=== PATIENT | female | born 1990 | race Caucasian/White ===

== ENCOUNTER 2020-01-25 12:34 | Outpatient (CLI) | payer BC, SELFPAY ==
--- NOTE | ~2020-01-25 | US_ITS ---
EXAMINATION: US pelvic complete w TV DATE: 01/25/2020 13:31 INDICATION: Incomplete spontaneous without complication. TECHNIQUE: Multiple transabdominal and transvaginal sonographic images of the pelvis were obtained. COMPARISON: None. FINDINGS: TRANSABDOMINAL ULTRASOUND: The uterus measures 8.1 x 4.4 x 6.1 cm. There is trace free fluid in the pelvis. TRANSVAGINAL ULTRASOUND: The endometrial complex measures 1.9 cm in thickness and demonstrates internal vascular flow. The rig ht ovary measures 3.1 x 2.2 x 2.3 cm. The left ovary measures 3.1 x 1.2 x 2.6 cm. IMPRESSION: 1. Thickened endometrial complex with internal vascular flow, consistent with retained products of co nception. Reviewed, dictated and finalized at location A. IMPRESSION: 1. Thickened endometrial complex with internal vascular flow, consistent with r etained products of conception.
== END 2020-01-25 12:35 | disposition home or self-care (01) ==
PROVIDERS: Visit Provider Obstetrics & Gynecology
DX: O03.4 Incomplete spontaneous abortion without complication (principal); R93.89 Abnormal findings on diagnostic imaging of other specified body structures
CPT/HCPCS: 76830; 76856

== ENCOUNTER 2023-07-11 17:36 | Inpatient (IN) | payer BC, SELFPAY ==
[2023-07-11] VITALS (25 sets, daily range): BP systolic 117–155; BP diastolic 53–86; PULSE 69–99; RESP 16; TEMP 36.6–36.8; O2SAT 98–100; BMI 37.3
--- NOTE | 2023-07-11 18:17 | LDADM ---
This patient, Ruth Francis, was admitted to Labor/Delivery/Recovery 107 on 07/11/23 at 17:36. Plans for labor, pain management and were discussed with patient. Patient/family oriented to hospital policies and general routines including ID bracelet, bed and alarms, visiting hours, pain management, procedures, bathroom and other care routines, personal items, smoking policy, room service/diet and guest tray routines, infant security routines, and visiting hours. Patient/Family are encouraged to report perceived risks to care and to ask questions if they do not understand what they are told or what they should do. See OBIX for further documentation.
[2023-07-11 18:45] LABS: Basophils Percent Auto 0.3 % (0.2-1.2); Eosinophils Percent Auto 0.5 % (0-4.4); Hematocrit 35.7 % (37.0-47.0); Hemoglobin 12.4 g/dL (12.0-15.0); Immature Granulocyte Absolute 0.03 K/mm3 (0.00-0.031); Immature Granulocyte Percent A 0.4 % (0-0.5); Lymphocytes Absolute Auto 1.35 K/mm3 (0.9-3.2); Lymphocytes Percent Auto 17.1 % (18.3-44.2); Mean Corpuscular HGB Conc 34.7 g/dl (32-36); Mean Corpuscular Hemoglobin 29.5 pg (26-34); Mean Platelet Volume 9.7 fl (7.4-10.4); Monocytes Absolute Auto 0.7 K/mm3 (0.1-0.6); Monocytes Percent Auto 9.4 % (2.6-8.5); Neutrophils Absolute Auto 5.7 K/mm3 (1.3-6.7); Neutrophils Percent Auto 72.3 % (45.5-73.1); Platelet Count Result 287 k/mm3 (150-375); Red Cell Distribution Width 13.2 % (11.5-14.5); White Blood Count 7.9 K/mm3 (4.5-10.0)
--- NOTE | 2023-07-11 19:11 | WPDANESEPP ---
Anes - Eval Pre Procedure Procedure: labor epidural Date/Time: 07/11/23 19:11 Pre Op Diagnosis: ROM Patient Data Age: 33 Gender: F Height: 1.68 m Weight: 105 kg Last Vital Signs O2 Del Method Room Air 07/11/23 18:55 Allergies Allergy/AdvReac Type Severity Reaction Status Date / Time No Known Allergies Allergy Verified 07/08/23 13:09 Home Medications Medication Instructions Recorded Confirmed Type Saccharomyces boulardii 250 mg 250 mg PO BID 05/19/23 History capsule (Digest Probiotic (S.boulardii)) ferrous sulfate 325 mg (65 mg 325 mg PO DAILY 05/19/23 History iron) tablet (Iron (ferrous sulfate)) vitamin#30 30 mg iron-10 cap PO 05/19/23 History mg iron-folic acid 1 mg-omg3 capsule aspirin 81 mg tablet 81 mg PO DAILY 06/24/23 06/24/23 History Laboratory Tests 07/11/23 18:36 WBC 7.9 K/mm3 (4.5-10.0) RBC 4.20 M/mm3 (4.2-5.4) Hgb 12.4 g/dL (12.0-15.0) Hct 35.7 L % (37.0-47.0) MCV 85.0 fl (80-100) MCH 29.5 pg (26-34) MCHC 34.7 g/dl (32-36) RDW 13.2 % (11.5-14.5) Plt Count 287 k/mm3 (150-375) MPV 9.7 fl (7.4-10.4) Immature Gran % (Auto) 0.4 % (0-0.5) Neut % (Auto) 72.3 % (45.5-73.1) Lymph % (Auto) 17.1 L % (18.3-44.2) Warren % (Auto) 9.4 H % (2.6-8.5) Eos % (Auto) 0.5 % (0-4.4) Baso % (Auto) 0.3 % (0.2-1.2) Lymph # (Auto) 1.35 K/mm3 (0.9-3.2) Warren # (Auto) 0.7 H K/mm3 (0.1-0.6) Eos # (Auto) 0.0 K/mm3 (0-0.3) Baso # (Auto) 0.0 K/mm3 (0.0-0.1) Abs Immat Gran (auto) 0.03 K/mm3 (0.00-0.031) Absolute Neuts (auto) 5.7 K/mm3 (1.3-6.7) Absolute Nucleated RBC 0.0 K/mm3 (0.0-0.012) Nucleated RBC % 0.0 % (0.0-0.2) RPR Pending Patient hx anesthesia problems: none Family hx anesthesia problems: none Results Review: All pre-operative results and documents have been reviewed as part of the pre-operative evaluation. [facility] Past Medical History Medical History (Updated 07/11/23 @ 19:12 by Sary Geiger CRNA) Abnormal vaginal bleeding Anxiety Depression Morbid obesity Family History Family History Grandparent Acute myocardial infarction Hypertension Diabetes mellitus Stomach cancer Social History Social History Smoking status: Never smoker Smoking end date: 06/05/19 Additional smoking assessment comments: stopped smoking with vaping Alcohol intake: former Substance use: never Lack of Transportation: No Lack of Food: Never True Current Housing: I Have Housing Concerned About Future Housing: No Difficulty Paying Gas/Electric Bills: No Difficulty Paying for Meds: No Currently Unemployed: No Education: High School Diploma/GED Difficulty w/ Childcare or Family Care: No Living arrangements: with family Occupation/Education: occupation Gender identity (if verbalized by the patient): Female Sexual Orientation (if Verbalized by the Patient): Straight or Heterosexual Spiritual care concerns: No Exam Day of Procedure 07/11/23 19:11 Patient weight: morbidly obese Heart: regular rate and rhythm Lungs: normal air movement Airway: Mallampati scale Neurological: alert and oriented
[2023-07-11] MEDS: LACTATED RINGERS 500 ML 999 ML IV CONT (22:23)
[2023-07-12] VITALS (174 sets, daily range): BP systolic 95–150; BP diastolic 21–98; PULSE 64–191; RESP 16; TEMP 36.5–37.1; O2SAT 90–100
[2023-07-12] MEDS: OXYTOCIN 30 UNITS/NS 500 ML 30 UNITS/500 ML BAG 999 UNITS IV CONT (06:57)
[2023-07-12] MEDS: LACTATED RINGERS 1,000 ML 125 ML IV CONT (07:14)
[2023-07-12] MEDS: AMPICILLIN 2 GM/NS 100 ML 2 GM/100 ML BAG IVPB (10:23)
--- NOTE | 2023-07-12 11:54 | PM.IMHP ---
H&P: HPI History of Present Illness Date/Time: 07/12/23 11:54 Chief Complaint: Intrauterine at term Narrative: 33-year-old who presents at 38 weeks 0 days with spontaneous rupture of membranes. Patient also reports occasional contractions. Patient reports good movement. Review of Systems Cardiovascular: Cardiovascular: Denies chest pain, Denies leg edema, Denies palpitations, Denies dyspnea and Denies dyspnea on exertion Respiratory: Respiratory: Denies cough, Denies dyspnea and Denies dyspnea on exertion Gastrointestinal: Gastrointestinal: Denies abdominal pain, Denies constipation, Denies diarrhea, Denies nausea and Denies vomiting Genitourinary: Genitourinary: Denies hematuria, Denies urinary frequency, Denies dysuria, Denies pelvic pain, Denies urinary incontinence and Denies vaginal discharge Neurologic: Reports system reviewed and no additional complaints, except as documented Psychiatric: Psychiatric: Reports no additional psychiatric complaints Endocrine: Endocrine: Denies palpitations PMFSH Past Medical History Medical History (Updated 07/11/23 @ 19:12 by Sary Geiger CRNA) Abnormal vaginal bleeding Anxiety Depression Morbid obesity Family History Family History Grandparent Acute myocardial infarction Hypertension Diabetes mellitus Stomach cancer Social History Social History Smoking status: Never smoker Smoking end date: 06/05/19 Additional smoking assessment comments: stopped smoking with vaping Alcohol intake: former Substance use: never Lack of Transportation: No Lack of Food: Never True Current Housing: I Have Housing Concerned About Future Housing: No Difficulty Paying Gas/Electric Bills: No Difficulty Paying for Meds: No Currently Unemployed: No Education: High School Diploma/GED Difficulty w/ Childcare or Family Care: No Living arrangements: with family Occupation/Education: occupation Gender identity (if verbalized by the patient): Female Sexual Orientation (if Verbalized by the Patient): Straight or Heterosexual Spiritual care concerns: No Meds Home Medications and Allergies Home Medications Medication Instructions Recorded Confirmed Type Saccharomyces boulardii 250 mg 250 mg PO BID 05/19/23 History capsule (Digest Probiotic (S.boulardii)) ferrous sulfate 325 mg (65 mg 325 mg PO DAILY 05/19/23 History iron) tablet (Iron (ferrous sulfate)) vitamin#30 30 mg iron-10 cap PO 05/19/23 History mg iron-folic acid 1 mg-omg3 capsule aspirin 81 mg tablet 81 mg PO DAILY 06/24/23 06/24/23 History Allergies Allergy/AdvReac Type Severity Reaction Status Date / Time No Known Allergies Allergy Verified 07/08/23 13:09 Vital Signs Vital Signs - 24 hr 07/11/23 20:34 07/11/23 23:09 07/11/23 23:14 Temperature 97.9 F Pulse Rate 78 Respiratory Rate 16 Blood Pressure 135/83 Pulse Oximetry 99 100 Oxygen Delivery 07/11/23 23:19 07/11/23 23:20 07/11/23 23:22 Temperature Pulse Rate 87 88 Respiratory Rate Blood Pressure 155/86 H 148/84 H Pulse Oximetry 100 Oxygen Delivery 07/11/23 23:24 07/11/23 23:25 07/11/23 23:28 Temperature Pulse Rate 86 82 Respiratory Rate Blood Pressure 144/71 H 152/79 H Pulse Oximetry 100 Oxygen Delivery 07/11/23 23:29 07/11/23 23:31 07/11/23 23:34 Temperature Pulse Rate 84 94 Respiratory Rate Blood Pressure 140/75 140/75 Pulse Oximetry 100 99 Oxygen Delivery 07/11/23 23:37 07/11/23 22:30 07/11/23 23:39 Temperature 98.3 F Pulse Rate 86 Respiratory Rate 16 Blood Pressure 144/71 H Pulse Oximetry 100 Oxygen Delivery 07/11/23 23:40 07/11/23 23:43 07/11/23 23:44 Temperature Pulse Rate 86 90 Respiratory Rate Blood Pressure 140/73 143/81
--- NOTE | 2023-07-12 11:54 | PM.OBPRVD ---
OB - Delivery Note Procedure Procedure: Patient pushed for a spontaneous vaginal delivery. The fetus was delivered atraumatically and placed on the maternal abdomen. The cord was clamped and cut after 1 minute of life. The cord was double clamped and cut and a segment of cord was collected for cord gases. Cord blood was collected for blood type and Coomb's testing. The placenta delivered spontaneously and was noted to be intact. The perineum was inspected and there was a 1st degree perineal laceration. The laceration was repaired with 3-0 vicryl in the usual fashion. The uterus was firm and good hemostasis was noted. The patient and fetus were stable in the delivery room. Delivery augmentation: Pitocin Delivery monitor: External FHT Route of delivery: Episiotomy description: None Laceration Description: Perineal - 1st Degree Delivery repair: vicryl Specimen: No Quantitative Blood Loss (ml): 200 Anesthesia type: Epidural Disposition: Floor () Complications: No immediate complications Baby Date of : 07/12/23 Time of : 11:37 Weeks of gestation at delivery: 38 gender: Female presentation: vertex position: Right Occiput Anterior Placenta delivery description: Spontaneous Cord Vessel Description: 3 Vessels score one minute: 8 score five minutes: 9 AMG Delivery Billing Delivery Delivery: Delivery Charge
[2023-07-12] MEDS: OXYTOCIN 30 UNITS/NS 500 ML 30 UNITS/500 ML BAG 125 UNITS IV CONT (12:18)
--- NOTE | 2023-07-12 14:37 | PC.NURSE ---
Patient transferred to post room #285 via ( w/c ). Support person present. Oriented to unit, room, information board, rooming in, admission packet and security measures. Patient verbalizes understanding.
[2023-07-12 15:31] LABS: Rapid Plasma Reagin Non-Reactive (NonReactive)
[2023-07-13] VITALS: BP 118/80; PULSE 81; RESP 18; TEMP 36.6; O2SAT 97
[2023-07-13 05:30] LABS: Hematocrit 31.5 % (37.0-47.0); Hemoglobin 10.8 g/dL (12.0-15.0)
--- NOTE | 2023-07-13 07:54 | WPDANLDPN2 ---
Anes-Prog Note L&D Date/Time: 07/13/23 07:54 Comfortable throughout: labor and delivery Neuraxial method: epidural Epidural/Spinal procedure site: clean & non-tender Neuro status: Neuro function grossly intact. Cardiovascular status: normal Respiratory status: normal Airway patency: baseline Mental status: baseline Post-Op hydration status: normal Vital Signs: Last Vital Signs Temp 36.6 C 07/13/23 00:00 Pulse 81 07/13/23 00:00 Resp 18 07/13/23 00:00 BP 118/80 07/13/23 00:00 Pulse Ox 97 07/13/23 00:00 O2 Del Method Room Air 07/12/23 21:26 Pain score (VAS): 0 I/O: Intake & Output 07/12/23 07/12/23 07/13/23 15:59 23:59 07:59 Output Total 328 Balance -328 Post-procedural complaints: none Patient feedback: Patient satisfied with anesthetic care.
[2023-07-13] MEDS: MULTIVIT/MIN/PREN/FOL AC/IRON TABLET 1 TAB PO (08:09)
[2023-07-13 08:35] VITALS: BP 120/77; PULSE 82; RESP 18; TEMP 36.9; O2SAT 98
--- NOTE | 2023-07-13 09:58 | PC.NURSE ---
[id number] Introductions were made, then consulted with patient to assess needs related to . Mother led the conversation with her?plans to feed?her infant and the?experience so far. Encouraged [id number], stimulating the for wakefulness to breastfeed. Mother states she has been independently without pain other than new sensitivities and her nipples are not misshaped after . Resources provided for inpatient and outpatient services with the feeding sheet, mom/baby guide and name written on the white board. Mother voiced understanding of information and will call if there is a request for assistance.
--- NOTE | 2023-07-13 10:52 | PC.NURSE ---
[id number] Consulted with patient to assess needs related to after a call request. Mother has to the right breast in cradle position and is sleeping with the tip of the nipple at the mouth. Mother works well with her . We reviewed working with , supporting breast and how to protect the nipples with an optimal deep latch, good positioning, and good hand washing. Encouraged understanding the benefits of skin to skin, responding to feeding cues, frequencies of feeding 8-12 times in 24 hours (approximately 2-3 hours), duration of feedings, milk production, intake/output feeding sheet and signs of adequate intake encouraging swallowing at the breast. Reviewed positioning and alignment, supporting breast, off-centered (asymmetrical latch) and leading with the chin with big, open, wide gape. Infant latched optimally to the right breast in football position. Education given to mother of how to visualize suck/swallow ratios and listen for drinking at the breast. Infant was able to maintain latch without discomfort to mother for 5-7 minutes with no misshaped nipple after self detaching. Infant was reset with [id number], then when feeding cues were visualized infant latched to the left breast using football positioning. Mother states there's no pain. Nipple care reviewed with optimal latch, good positioning and using clean hands when feeding her , touching her breast, preventing and treatment of engorgement and mastitis. Encouraged mother to feed her infant on demand frequently. Resources used to facilitate learning were used from the tool and mom/baby guide. Mother voiced understanding of the education shared, to call for assistance if the does not latch or if there is discomfort with .
--- NOTE | 2023-07-13 11:40 | PM.OBDSVD ---
DS: Admitting Diagnosis Discharge Date 07/13/23 Admitting Diagnosis intrauterine at term DS: Discharge Diagnosis Discharge Diagnosis (1) Encounter for supervision of normal in third trimester: Qualifiers: Normal : other normal Qualified Code(s): Z34.83 - Encounter for supervision of other normal , third trimester Code(s): Z34.93 - Encounter for supervision of normal , unspecified, third trimester Status: Acute (2) Hyperthyroidism during : Code(s): O99.280 - Endocrine, nutritional and metabolic diseases complicating , unspecified trimester; E05.90 - Thyrotoxicosis, unspecified without thyrotoxic crisis or storm Status: Acute (3) Normal vaginal delivery: Code(s): O80 - Encounter for full-term uncomplicated delivery Status: Acute OB - DS: Summary OB Procedures : None OB Procedures Intrapartum: Spontaneous Vag Delivery OB Procedures: : None Status at Discharge Functional status at discharge: independent ambulation Overall status at discharge: patient is back to baseline Time Spent with Patient Time attestation: Total time spent providing and/or coordinating discharge services: Time spent: Less than 30 minutes Exam Const: General: comfortable and no acute distress Resp: Effort & Inspection: normal respiratory effort Auscultation: clear to auscultation bilaterally Cardio: Rate: regular rate GI: GI Palp: Yes Soft to palpation Auscultation: normal bowel sounds Other: Fundus firm below umbilicus Psych: Appearance: grossly normal Mental Status: mental status grossly normal Affect: normal affect DS: Data Data Completed and Pending Labs on day of discharge: Labs from last 24 hours 07/13/23 07/11/23 05:01 18:36 Hgb 10.8 L Hct 31.5 L RPR Non-reactive Discharge Plan Discharge Discharging Clinician: Parish Carter Patient Disposition: Home, Self-Care Activity: as tolerated and pelvic rest Diet: regular Patient Instructions: Antibiotic Form, Vaginal Delivery (DC) Stand Alone Forms: General Discharge Information Follow-up/Referrals: Parag Morrissey MD [Physician] - Discharge Medications: New acetaminophen 500 mg tablet 500 mg PO Q6H PRN (Reason: pain) Qty: 30 0RF ibuprofen 600 mg tablet 600 mg PO Q6H PRN (Reason: pain) Qty: 30 0RF Continued PNV #[id number] 30 mg iron-10 mg iron-1 mg capsule PO ferrous sulfate [Iron (ferrous sulfate)] 325 mg (65 mg iron) tablet 325 mg PO DAILY Saccharomyces boulardii [Digest Probiotic (S.boulardii)] 250 mg capsule 250 mg PO BID Discontinued Adult Low Dose Aspirin 81 mg Tablet 81 mg PO DAILY Date of admission: 07/11/23 17:36 Primary Care Provider: PHYSICIAN NOT ON STAFF,NONSTAFF Admitting Provider: Parag Morrissey Attending physician on admission: Parag Morrissey Condition: Stable
[2023-07-16 13:17] VITALS: BP 134/95; PULSE 90; RESP 18; TEMP 36.9; O2SAT 100
== END 2023-07-13 14:30 | disposition home or self-care (01) | DRG 807 ==
LOC: ANHOB2 07-13 11:53 → ANHLDR 07-14 12:20 → ANHOB2 07-14 12:20
PROVIDERS: Admitting Provider Student in an Organized Health Care Education/Training Program; Visit Provider Student in an Organized Health Care Education/Training Program
DX: O99.284 Endocrine, nutritional and metabolic diseases complicating childbirth (principal); Z37.0 Single live birth; E05.90 Thyrotoxicosis, unspecified without thyrotoxic crisis or storm; O70.0 First degree perineal laceration during delivery; O99.214 Obesity complicating childbirth; E66.01 Morbid (severe) obesity due to excess calories; Z3A.38 38 weeks gestation of pregnancy
CPT/HCPCS: 36415; 85014; 85018; 85025; 86592; 86850; 86900; 86901; A9270; J0290; J2590; J2795; J7120